=== PATIENT | male | born 1955 | race Caucasian/White ===

== ENCOUNTER 2018-12-31 10:11 | Inpatient (IN) ==
[~2018-12-31] VITALS: Ht 185.4 cm; Wt 75.4 kg
[~2018-12-31 10:11] MED LIST: CEFOTETAN 2 GM ONE; ESOM40CA PO; GLYCOPYRROLATE 0.2MG/1ML, 5ML ONE; HYDR-3237 PO; NEOSTIGMINE 1 MG/ML, 10ML ONE; ZOLP-413 PO
[2018-12-31] MEDS ORDERED: LACTATED RINGERS 1,000 ML IV SCH (12:40)
[2018-12-31 12:42] VITALS: BP 129/78
[2018-12-31] MEDS ORDERED: PIPERACILLIN/TAZO/PMX 3.375GM 50 ML IV ONE (13:00)
[2018-12-31] MEDS ORDERED: CHLORHEXIDINE 15 ML UDC ONE (13:53)
[2018-12-31] MEDS ORDERED: PIPERACILLIN/TAZO/PMX 3.375GM 0 ML ONE (13:55)
[2018-12-31] MEDS ORDERED: GLYCOPYRROLATE 0.2MG/1ML, 5ML ONE (14:55)
[2018-12-31] MEDS ORDERED: PROPOFOL 10 MG/ML, 20ML ONE ×5 (14:58→16:42)
[2018-12-31] MEDS ORDERED: MIDAZOLAM 1 MG/ML, 2ML IV PRN (16:00)
[2018-12-31] MEDS ORDERED: EPHEDRINE 50 MG/ML, 1ML IVPush PRN (16:00)
[2018-12-31] MEDS ORDERED: PROMETHAZINE 25 MG/ML, 1ML IV PRN (16:00)
[2018-12-31] MEDS ORDERED: ONDANSETRON 2MG/ML, 2ML IV PRN ×2 (16:00→22:30)
[2018-12-31] MEDS ORDERED: MEPERIDINE/PF 25MG/ML,1ML IVPush PRN (16:00)
[2018-12-31] MEDS ORDERED: HALOPERIDOL 5 MG/ML IV PRN (16:00)
[2018-12-31] MEDS ORDERED: LABETALOL 5MG/ML, 20ML IV PRN (16:00)
[2018-12-31] MEDS ORDERED: ALBUTEROL SULFATE 2.5 MG/3 ML NPPB PRN (16:00)
[2018-12-31] MEDS ORDERED: hydrALAzine 20 MG/ML, 1ML IV PRN (16:00)
[2018-12-31] MEDS ORDERED: FENTANYL PF 100 MCG/2ML ONE ×3 (16:37→20:21)
[2018-12-31] MEDS: FENTANYL PF 100 MCG/2ML IV PRN ×3 (16:40→19:31)
[2018-12-31] MEDS ORDERED: MIDAZOLAM 1 MG/ML, 2ML ONE (16:41)
[2018-12-31] MEDS ORDERED: SUCCINYLCHOLINE 20 MG/ML, 10ML ONE (16:42)
[2018-12-31] MEDS ORDERED: FENTANYL PF 250 MCG/5ML ONE (16:42)
[2018-12-31] MEDS ORDERED: DEXAMETHASONE 4 MG/ML, 1ML ONE (16:42)
[2018-12-31] MEDS ORDERED: ROCURONIUM 10MG/ML,5ML ONE (16:42)
[2018-12-31] MEDS ORDERED: ONDANSETRON 2MG/ML, 2ML ONE ×2 (18:52)
[2018-12-31] MEDS ORDERED: HYDROmorphone 1 MG/ML, 1ML VIAL ONE ×3 (19:20→20:49)
[2018-12-31] MEDS: HYDROmorphone 2 MG/ML, 1ML IVPush PRN ×2 (19:26→19:35)
[2018-12-31] MEDS ORDERED: DIAZEPAM 5 MG/ML, 2ML ONE (19:33)
[2018-12-31] MEDS: DIAZEPAM 5 MG/ML, 2ML IVPush PRN ×2 (19:41→19:52)
[2018-12-31] MEDS ORDERED: KETOROLAC 30 MG/1 ML ONE (20:05)
[2018-12-31] MEDS ORDERED: ACETAMINOPHEN 500 MG TABLET PO ONE (20:30)
[2018-12-31] MEDS ORDERED: KETOROLAC 30 MG/1 ML IV ONE (20:30)
[2018-12-31] MEDS ORDERED: GABAPENTIN 300 MG CAPSULE PO ONE (20:30)
[2018-12-31] MEDS ORDERED: OXYcodone 5 MG/5 ML ORAL.SOL UDC ONE (20:42)
[2018-12-31] MEDS ORDERED: PROMETHAZINE 25 MG/ML, 1ML ONE (21:02)
[2018-12-31] MEDS ORDERED: MEPERIDINE/PF 25MG/ML,1ML ONE (21:02)
[2018-12-31 22:05] VITALS: BP 154/92
[2018-12-31] MEDS: SODIUM CHLORIDE 0.9% 1,000 ML IV SCH (22:30)
[2018-12-31] MEDS ORDERED: ONDANSETRON 4 MG TABLET PO PRN (22:30)
[2018-12-31] MEDS ORDERED: FENTANYL PF 100 MCG/2ML IV PRN (22:30)
[2018-12-31] MEDS: OXYcodone IR 5MG TABLET PO PRN (23:45)
[2019-01-01 02:00] VITALS: BP 115/70
[2019-01-01 02:58] VITALS: BP 126/68
[2019-01-01] MEDS ORDERED: OXYcodone IR 5MG TABLET ONE (03:03)
[2019-01-01] MEDS: OXYcodone IR 5MG TABLET PO PRN ×2 (03:06→06:24)
[2019-01-01] MEDS: SODIUM CHLORIDE 0.9% 1,000 ML IV SCH ×3 (03:07→21:20)
[2019-01-01 05:21] LABS: BASOPHILS # (AUTO) 0.01 x10^3/uL (0-0.1); BASOPHILS % (AUTO) 0 % (0-1); EOSINOPHILS # (AUTO) 0.11 x10^3/uL (0-0.4); EOSINOPHILS % (AUTO) 1 % (1-7); LYMPHOCYTES # (AUTO) 0.84 x10^3/uL (1-3.4); LYMPHOCYTES % (AUTO) 6 % (22-44); MD NO; MEAN CORPUSCULAR HEMOGLOBIN 30.9 pg (27.5-34.5); MEAN CORPUSCULAR HGB CONC 32.5 g/dL (33.2-36.2); MEAN CORPUSCULAR VOLUME 95.3 fL (81-97); MEAN PLATELET VOLUME 8.2 fL (7.4-10.4); MONOCYTES # (AUTO) 0.41 x10^3/uL (0.2-0.8); MONOCYTES % (AUTO) 3 % (2-9); NEUTROPHILS # (AUTO) 11.85 x10^3/uL (1.8-6.8); NEUTROPHILS % (AUTO) 90 % (42-75); PLATELET COUNT 277 x10^3/uL (130-400); RED BLOOD COUNT 4.82 x10^6/uL (4.38-5.82); RED CELL DISTRIBUTION WIDTH 14.2 % (9.4-14.8)
[2019-01-01 05:26] LABS: CHLORIDE 110 mmol/L (98-107)
[2019-01-01 05:31] LABS: ANION GAP 5 mmol/L (5-15); CALCIUM 8.7 mg/dL (8.5-10.1); CREATININE 0.94 mg/dL (0.7-1.3)
[2019-01-01] MEDS ORDERED: OXYcodone IR 5MG TABLET PO PRN (07:00)
[2019-01-01] MEDS ORDERED: ONDANSETRON 2MG/ML, 2ML IVPush PRN (07:00)
[2019-01-01] MEDS ORDERED: ONDANSETRON ODT 4 MG PO PRN (07:00)
[2019-01-01 07:37] VITALS: BP 111/68
[2019-01-01] MEDS ORDERED: FAMOTIDINE 20 MG TABLET ONE (08:46)
[2019-01-01] MEDS ORDERED: FAMOTIDINE 20 MG TABLET PO SCH ×2 (09:00)
[2019-01-01] MEDS: ENOXAPARIN 40 MG/0.4 ML SQ SCH (09:05)
[2019-01-01] MEDS: FENTANYL PF 100 MCG/2ML IVPush PRN ×6 (10:01→23:31)
[2019-01-01] MEDS: KETOROLAC 30 MG/1 ML IVPush SCH ×3 (11:59→23:35)
[2019-01-01 12:03] VITALS: BP 135/77
[2019-01-01 12:43] VITALS: BP 114/70
[2019-01-01 20:13] VITALS: BP 94/47
[2019-01-01] MEDS: FAMOTIDINE 20 MG TABLET PO SCH (21:20)
[2019-01-02 01:40] VITALS: BP 102/57
[2019-01-02] MEDS: FENTANYL PF 100 MCG/2ML IVPush PRN ×9 (02:46→23:57)
[2019-01-02] MEDS: KETOROLAC 30 MG/1 ML IVPush SCH ×4 (05:56→23:52)
[2019-01-02] MEDS: SODIUM CHLORIDE 0.9% 1,000 ML IV SCH ×2 (05:59→16:45)
[2019-01-02] MEDS: FAMOTIDINE 20 MG TABLET PO SCH ×2 (07:31→20:30)
[2019-01-02 07:40] VITALS: BP 116/66
[2019-01-02] MEDS ORDERED: SODIUM CHLORIDE 0.9%, 500ML IVBOLUS ONE (08:00)
[2019-01-02] MEDS: ENOXAPARIN 40 MG/0.4 ML SQ SCH (08:05)
[2019-01-02 13:14] VITALS: BP 134/71
[2019-01-02 19:44] VITALS: BP 130/68
[2019-01-03 01:45] VITALS: BP 100/47
[2019-01-03] MEDS: SODIUM CHLORIDE 0.9% 1,000 ML IV SCH ×3 (04:07→23:05)
[2019-01-03] MEDS: KETOROLAC 30 MG/1 ML IVPush SCH ×4 (05:48→23:05)
[2019-01-03 06:27] VITALS: BP 109/58
[2019-01-03] MEDS: FAMOTIDINE 20 MG TABLET PO SCH ×2 (09:13→20:46)
[2019-01-03] MEDS: ENOXAPARIN 40 MG/0.4 ML SQ SCH (09:13)
[2019-01-03] MEDS: FENTANYL PF 100 MCG/2ML IVPush PRN ×3 (12:18→20:46)
[2019-01-03 14:08] VITALS: BP 120/65
[2019-01-03 19:15] VITALS: BP 142/77
[2019-01-04 02:35] VITALS: BP 136/68
[2019-01-04] MEDS: KETOROLAC 30 MG/1 ML IVPush SCH ×3 (05:28→17:32)
[2019-01-04 06:33] VITALS: BP 143/70
[2019-01-04] MEDS: SODIUM CHLORIDE 0.9% 1,000 ML IV SCH ×2 (09:10→20:38)
[2019-01-04] MEDS: ENOXAPARIN 40 MG/0.4 ML SQ SCH (09:10)
[2019-01-04] MEDS: FAMOTIDINE 20 MG TABLET PO SCH ×2 (09:10→20:38)
[2019-01-04] MEDS ORDERED: OMNIPAQUE 350 MG/ML, 100ML BOTTLE ONE (11:04)
[2019-01-04 13:18] VITALS: BP 145/74
[2019-01-04 16:54] LABS: CLOSTRIDIUM DIFFICILE ANTIGEN NEGATIVE; CLOSTRIDIUM DIFFICILE TOXIN NEGATIVE (Negative)
[2019-01-04 19:35] VITALS: BP 142/82
[2019-01-05 03:14] VITALS: BP 132/69
[2019-01-05] MEDS: KETOROLAC 30 MG/1 ML IVPush SCH ×4 (05:39→17:27)
[2019-01-05 06:59] VITALS: BP 129/71
[2019-01-05] MEDS: ENOXAPARIN 40 MG/0.4 ML SQ SCH (09:53)
[2019-01-05] MEDS: FAMOTIDINE 20 MG TABLET PO SCH ×2 (09:55→19:41)
[2019-01-05 12:13] VITALS: BP 151/79
[2019-01-05] MEDS: SODIUM CHLORIDE 0.9% 1,000 ML IV SCH (17:28)
[2019-01-05 19:07] VITALS: BP 147/74
[2019-01-05] MEDS: FENTANYL PF 100 MCG/2ML IVPush PRN (19:46)
[2019-01-06] MEDS: SODIUM CHLORIDE 0.9% 1,000 ML IV SCH ×3 (02:28→21:28)
[2019-01-06 04:19] VITALS: BP 149/77
[2019-01-06] MEDS: KETOROLAC 30 MG/1 ML IVPush SCH ×2 (05:57)
[2019-01-06 06:52] VITALS: BP 149/75
[2019-01-06] MEDS: FAMOTIDINE 20 MG TABLET PO SCH ×2 (10:10→20:28)
[2019-01-06] MEDS: ENOXAPARIN 40 MG/0.4 ML SQ SCH (10:10)
[2019-01-06 12:31] VITALS: BP 157/79
[2019-01-06 18:54] VITALS: BP 159/83
[2019-01-06] MEDS: FENTANYL PF 100 MCG/2ML IVPush PRN ×2 (19:40→23:03)
[2019-01-06] MEDS ORDERED: LIDOCAINE GEL 2%, 5ML ONE (21:53)
[2019-01-06] MEDS ORDERED: BENZOCAINE 20% SPRAY 0.5ML ONE (21:53)
[2019-01-06] MEDS ORDERED: OMNIPAQUE 350 MG/ML, 150 ML BOTTLE ONE (22:51)
[2019-01-07] MEDS: FENTANYL PF 100 MCG/2ML IVPush PRN ×4 (03:12→21:58)
[2019-01-07 03:20] VITALS: BP 147/78
[2019-01-07 04:59] LABS: ALANINE AMINOTRANSFERASE 22 U/L (12-78); ALBUMIN 2.6 g/dL (3.4-5.0); ANION GAP 12 mmol/L (5-15); CALCIUM 8.5 mg/dL (8.5-10.1); CHLORIDE 113 mmol/L (98-107); CREATININE 0.65 mg/dL (0.7-1.3)
[2019-01-07 05:01] LABS: ALKALINE PHOSPHATASE 71 U/L (45-117); BILIRUBIN,TOTAL 0.8 mg/dL (0.2-1.0); TOTAL PROTEIN 6.1 g/dL (6.4-8.2)
[2019-01-07 06:48] VITALS: BP 150/76
[2019-01-07] MEDS: FAMOTIDINE 20 MG TABLET PO SCH (08:59)
[2019-01-07] MEDS: ENOXAPARIN 40 MG/0.4 ML SQ SCH (09:00)
[2019-01-07] MEDS: SODIUM CHLORIDE 0.9% 1,000 ML IV SCH ×2 (09:00→20:22)
[2019-01-07 13:18] VITALS: BP 142/91
[2019-01-07] MEDS ORDERED: DEXTROSE 10% 500 ML IV PRN (17:00)
[2019-01-07] MEDS ORDERED: PVN PER PHARMACY IV SCH (17:00)
[2019-01-07] MEDS ORDERED: AMINO ACID 10% 900 ML, DEXTROSE 70% 420 ML, FAT EMUL/SMOF TPN 225 ML, STERILE WATER 1,3... IV SCH (17:00)
[2019-01-07] MEDS ORDERED: FILTER, DISP 1.2 MICRON FOR TPN/PVN IV PRN (17:00)
[2019-01-07] MEDS ORDERED: DEXTROSE 50%, 50ML SYRINGE IVPush PRN (17:00)
[2019-01-07 21:27] VITALS: BP 171/82
[2019-01-07] MEDS: INSULIN REGULAR MEDIUM DOSE Q6H X 48HRS SQ-INSULIN SCH (21:59)
[2019-01-08 00:22] VITALS: BP 135/70
[2019-01-08] MEDS: INSULIN REGULAR MEDIUM DOSE Q6H X 48HRS SQ-INSULIN SCH ×4 (03:00→22:37)
[2019-01-08] MEDS: SODIUM CHLORIDE 0.9% 1,000 ML IV SCH ×2 (04:31→16:51)
[2019-01-08] MEDS: FENTANYL PF 100 MCG/2ML IVPush PRN ×2 (04:32→22:30)
[2019-01-08 05:13] LABS: ANION GAP 7 mmol/L (5-15); CALCIUM 8.4 mg/dL (8.5-10.1); CHLORIDE 113 mmol/L (98-107); CREATININE 0.82 mg/dL (0.7-1.3); TRIGLYCERIDES 107 mg/dL (50-200)
[2019-01-08 05:17] LABS: PREALBUMIN 10.4 mg/dL (20.0-40.0)
[2019-01-08 08:49] VITALS: BP 145/86
[2019-01-08] MEDS: ENOXAPARIN 40 MG/0.4 ML SQ SCH (09:48)
[2019-01-08] MEDS ORDERED: TPN PER PHARMACY MC PRN (13:30)
[2019-01-08 14:30] VITALS: BP 130/64
[2019-01-08] MEDS ORDERED: POTASSIUM CHLORIDE 40 MEQ in SODIUM CHLORIDE 0.9% 500 ML IV ONE (15:00)
[2019-01-08] MEDS: FILTER, DISP 1.2 MICRON FOR TPN/PVN IV PRN (16:50)
[2019-01-08] MEDS ORDERED: DEXTROSE 70% IV SCH (17:00)
[2019-01-08] MEDS ORDERED: SMOF TPN IV SCH (17:00)
[2019-01-08] MEDS ORDERED: FAT EMUL IV SCH (17:00)
[2019-01-08] MEDS ORDERED: AMINO ACID 10% IV SCH (17:00)
[2019-01-08] MEDS ORDERED: [UNRECOGNIZED DRUG - OTHER] IV SCH (17:00)
[2019-01-08 18:34] VITALS: BP 125/72
[2019-01-09 00:15] VITALS: BP 138/87
[2019-01-09] MEDS: FENTANYL PF 100 MCG/2ML IVPush PRN (04:37)
[2019-01-09] MEDS: SODIUM CHLORIDE 0.9% 1,000 ML IV SCH (05:57)
[2019-01-09] MEDS: INSULIN REGULAR MEDIUM DOSE Q6H X 48HRS SQ-INSULIN SCH ×3 (06:07→14:47)
[2019-01-09 06:19] LABS: BASOPHILS # (AUTO) 0.06 x10^3/uL (0-0.1); BASOPHILS % (AUTO) 1 % (0-1); EOSINOPHILS # (AUTO) 0.67 x10^3/uL (0-0.4); EOSINOPHILS % (AUTO) 8 % (1-7); LYMPHOCYTES # (AUTO) 1.51 x10^3/uL (1-3.4); LYMPHOCYTES % (AUTO) 18 % (22-44); MD NO; MEAN CORPUSCULAR HEMOGLOBIN 30.9 pg (27.5-34.5); MEAN CORPUSCULAR HGB CONC 32.5 g/dL (33.2-36.2); MEAN PLATELET VOLUME 8.5 fL (7.4-10.4); MONOCYTES # (AUTO) 0.77 x10^3/uL (0.2-0.8); MONOCYTES % (AUTO) 9 % (2-9); NEUTROPHILS # (AUTO) 5.56 x10^3/uL (1.8-6.8); NEUTROPHILS % (AUTO) 65 % (42-75); PLATELET COUNT 313 x10^3/uL (130-400); RED BLOOD COUNT 3.94 x10^6/uL (4.38-5.82); RED CELL DISTRIBUTION WIDTH 14.1 % (9.4-14.8)
[2019-01-09 06:30] LABS: ALANINE AMINOTRANSFERASE 25 U/L (12-78); ALBUMIN 2.4 g/dL (3.4-5.0); ANION GAP 4 mmol/L (5-15); CALCIUM 8.2 mg/dL (8.5-10.1); CHLORIDE 113 mmol/L (98-107); CREATININE 0.68 mg/dL (0.7-1.3)
[2019-01-09 06:32] LABS: ALKALINE PHOSPHATASE 74 U/L (45-117); BILIRUBIN,TOTAL 0.5 mg/dL (0.2-1.0)
[2019-01-09 07:30] VITALS: BP 152/75
[2019-01-09] MEDS: TAMSULOSIN 0.4 MG CAP.ER.24H PO SCH (08:09)
[2019-01-09] MEDS: ENOXAPARIN 40 MG/0.4 ML SQ SCH (08:09)
[2019-01-09] MEDS: BUTALBIT/ACETAMIN/CAFF/CODEINE CAPSULE PO PRN (09:54)
[2019-01-09 13:38] VITALS: BP 126/75
[2019-01-09] MEDS: FILTER, DISP 1.2 MICRON FOR TPN/PVN IV PRN (16:10)
[2019-01-09] MEDS ORDERED: FAT EMUL IV SCH (17:00)
[2019-01-09] MEDS ORDERED: SMOF TPN IV SCH (17:00)
[2019-01-09] MEDS ORDERED: [UNRECOGNIZED DRUG - OTHER] IV SCH (17:00)
[2019-01-09] MEDS ORDERED: AMINO ACID 10% IV SCH (17:00)
[2019-01-09] MEDS ORDERED: DEXTROSE 70% IV SCH (17:00)
[2019-01-09 18:27] VITALS: BP 128/66
[2019-01-10 02:41] VITALS: BP 134/74
[2019-01-10] MEDS: BUTALBIT/ACETAMIN/CAFF/CODEINE CAPSULE PO PRN ×2 (06:08→18:43)
[2019-01-10 06:54] LABS: ANION GAP 4 mmol/L (5-15); CALCIUM 8.4 mg/dL (8.5-10.1); CHLORIDE 109 mmol/L (98-107); CREATININE 0.67 mg/dL (0.7-1.3)
[2019-01-10 07:05] VITALS: BP 133/71
[2019-01-10] MEDS: INSULIN REGULAR MEDIUM DOSE QDAY SQ-INSULIN SCH (09:00)
[2019-01-10] MEDS: ENOXAPARIN 40 MG/0.4 ML SQ SCH (09:47)
[2019-01-10] MEDS: TAMSULOSIN 0.4 MG CAP.ER.24H PO SCH (09:48)
[2019-01-10 14:55] VITALS: BP 121/74
[2019-01-10] MEDS ORDERED: FAT EMUL IV SCH (17:00)
[2019-01-10] MEDS ORDERED: AMINO ACID 10% IV SCH (17:00)
[2019-01-10] MEDS ORDERED: DEXTROSE 70% IV SCH (17:00)
[2019-01-10] MEDS ORDERED: SMOF TPN IV SCH (17:00)
[2019-01-10] MEDS ORDERED: [UNRECOGNIZED DRUG - OTHER] IV SCH (17:00)
[2019-01-10] MEDS: FILTER, DISP 1.2 MICRON FOR TPN/PVN IV PRN (17:56)
[2019-01-10 18:54] VITALS: BP 124/71
[2019-01-11 04:00] VITALS: BP 120/72
[2019-01-11] MEDS: FENTANYL PF 100 MCG/2ML IVPush PRN ×2 (06:02→09:15)
[2019-01-11 06:19] LABS: CHLORIDE 107 mmol/L (98-107)
[2019-01-11 06:28] LABS: ALANINE AMINOTRANSFERASE 77 U/L (12-78); ALBUMIN 2.7 g/dL (3.4-5.0); ALKALINE PHOSPHATASE 152 U/L (45-117); ANION GAP 7 mmol/L (5-15); BILIRUBIN,TOTAL 0.3 mg/dL (0.2-1.0); CALCIUM 8.5 mg/dL (8.5-10.1); CREATININE 0.69 mg/dL (0.7-1.3); PREALBUMIN 16.1 mg/dL (20.0-40.0); TOTAL PROTEIN 6.8 g/dL (6.4-8.2); TRIGLYCERIDES 320 mg/dL (50-200)
[2019-01-11 06:43] VITALS: BP 120/75
[2019-01-11] MEDS: INSULIN REGULAR MEDIUM DOSE QDAY SQ-INSULIN SCH (07:17)
[2019-01-11] MEDS: ENOXAPARIN 40 MG/0.4 ML SQ SCH (09:15)
[2019-01-11] MEDS: TAMSULOSIN 0.4 MG CAP.ER.24H PO SCH (09:15)
[2019-01-11 14:28] VITALS: BP 107/65
[2019-01-11] MEDS: BUTALBIT/ACETAMIN/CAFF/CODEINE CAPSULE PO PRN (16:00)
[2019-01-11] MEDS ORDERED: BUTALBIT/ACETAMIN/CAFF/CODEINE CAPSULE PO PRN (17:41)
[2019-01-11 20:32] VITALS: BP 110/69
[2019-01-12 02:59] VITALS: BP 104/61
[2019-01-12 07:00] VITALS: BP 109/71
[2019-01-12] MEDS: ENOXAPARIN 40 MG/0.4 ML SQ SCH (09:00)
[2019-01-12] MEDS ORDERED: BUTA1CAP8 PO (09:08)
[2019-01-12] MEDS ORDERED: TAMS-11 PO (09:08)
[2019-01-12] MEDS: TAMSULOSIN 0.4 MG CAP.ER.24H PO SCH (09:27)
== END 2019-01-12 12:00 | disposition home or self-care (01) | DRG 327 ==
LOC: EDSTATUS 12:00 → OUT 12:11 → 4NE 19:10 → OUT 22:05 → 4NE 22:05 → OBSVTOIN 01-01 15:59 → DCLOUNGE 01-12 11:48
PROVIDERS: ADMIT Internal Medicine Gastroenterology; ATTEND Internal Medicine Gastroenterology
PROC: 0DQ90ZZ Repair Duodenum, Open Approach (ICD-10-PCS; 2018-12-31)
PROC: 0DU907Z Supplement Duodenum with Autologous Tissue Substitute, Open Approach (ICD-10-PCS; 2018-12-31)
PROC: 0D798ZZ Dilation of Duodenum, Via Natural or Artificial Opening Endoscopic (ICD-10-PCS; 2018-12-31)
PROC: 0DH68YZ Insertion of Other Device into Stomach, Via Natural or Artificial Opening Endoscopic (ICD-10-PCS; 2018-12-31)
PROC: 0DH67UZ Insertion of Feeding Device into Stomach, Via Natural or Artificial Opening (ICD-10-PCS; 2019-01-06)
PROC: 02HV33Z Insertion of Infusion Device into Superior Vena Cava, Percutaneous Approach (ICD-10-PCS; principal; 2019-01-08)
PROC: B5181ZA Fluoroscopy of Superior Vena Cava using Low Osmolar Contrast, Guidance (ICD-10-PCS; 2019-01-08)
PROC: B54MZZZ Ultrasonography of Right Upper Extremity Veins (ICD-10-PCS; 2019-01-08)
DX: K31.5 Obstruction of duodenum (principal); S36.400A Unspecified injury of duodenum, initial encounter; D18.09 Hemangioma of other sites; K26.5 Chronic or unspecified duodenal ulcer with perforation; G43.909 Migraine, unspecified, not intractable, without status migrainosus; K44.9 Diaphragmatic hernia without obstruction or gangrene; K80.50 Calculus of bile duct without cholangitis or cholecystitis without obstruction; K21.9 Gastro-esophageal reflux disease without esophagitis; R13.10 Dysphagia, unspecified; R33.9 Retention of urine, unspecified; R32 Unspecified urinary incontinence; K86.9 Disease of pancreas, unspecified; Y93.89 Activity, other specified; Y99.8 Other external cause status
CPT/HCPCS: 36415; 73110; 74241; 74340; 82150; J3475; J3490; 36573; 80048; 80053; 82962; 83735; 84100; 84134; 84478; 85025; 87324; 93005; G0378; J0610; J1100; J1170; J1644; J1650; J1815; J1885; J2250; J2405; J2543; J2704; J2710; J3010; J3360; J3480; Q9967; C1725; C1751; J0330; J1720; J3420; J7030; J7040; J7120